=== PATIENT | female | born 1975 | race Caucasian/White ===

== ENCOUNTER 2016-09-29 10:13 | Emergency (ER) | payer OTHER ==
[~2016-09-29] VITALS: Ht 175.3 cm; Wt 112.4 kg
[~2016-09-29 10:13] MED LIST: CLONAZEPAM2 MG PO; ESKALITH300 M1 PO; HYDROCODON-ACE1 EAC7 PO; KLONOPIN2 MG PO; LITHATE5 MG PO; LITHIUM CARBON300 M1 PO; LITHIUM CARBON300 M2 PO; MOTRIN800 MG PO; PRILOSEC20 MG PO; SEROQUEL300 MG PO; SINEQUAN100 MG PO; VICODIN 5-3001 EACH PO; XANAX2 MG PO
[2016-09-29] MEDS ORDERED: ZANTAC150 MG PO (13:47)
[2016-09-29] MEDS ORDERED: PREDNISONE20 MG PO (13:47)
[2016-09-29] MEDS ORDERED: LORTAB 5-325 M1 EACH PO (13:47)
[2016-09-29] MEDS ORDERED: KEFLEX500 MG PO (13:47)
[2016-09-29 14:16] VITALS: BP 153/82
== END 2016-09-29 14:17 | disposition home or self-care (01) ==
LOC: EME → EDBD 10:13 → EME 14:17
PROC: 0H98XZZ Drainage of Buttock Skin, External Approach (ICD-10-PCS; principal; 2016-09-29)
DX: L02.31 Cutaneous abscess of buttock (principal); L50.9 Urticaria, unspecified; L29.9 Pruritus, unspecified; Z87.891 Personal history of nicotine dependence
CPT/HCPCS: 99281; 99284; J7512

== ENCOUNTER 2016-11-07 05:19 | Inpatient (IN) | payer OTHER ==
[~2016-11-07] VITALS: Ht 175.3 cm; Wt 113.4 kg
[~2016-11-07 05:19] MED LIST changes: +KEFLEX500 MG PO; +LORTAB 5-325 M1 EACH PO; +PREDNISONE20 MG PO; +ZANTAC150 MG PO
[2016-11-07 06:22] LABS: EOSINOPHIL (%) 0 % (0-5); IMMATURE GRANULOCYTE (%) 0.9 % (0.0-0.7); IMMATURE GRANULOCYTE COUNT 0.1 K/uL; INSTRUMENT ABS NEUTROPHIL CT 4.3 K/uL; LYMPHOCYTE COUNT 2.1 K/uL (1.0-2.8); MCHC 33.8 G/DL (30.0-36.0); MCV 91.8 FL (83-99); MEAN PLAT.VOLUME 9.7 uM^3 (9.5-12.4); MONOCYTE (%) 4.3 % (3-12); MONOCYTE COUNT 0.3 K/uL (0-0.8); NEUTROPHIL (%) 63.7 % (45-76); NEUTROPHIL COUNT 4.3 K/uL (1.8-6.4); PLATELET COUNT 165 K/uL (156-360); RBC DIS.WIDTH-CV 13.5 % (11.8-14.6); RBC DIS.WIDTH-SD 45.3 % (39-53); RED BLOOD COUNT 4.03 M/uL (3.80-5.20); WHITE BLOOD COUNT 6.8 K/uL (4.1-10.2)
[2016-11-07 06:35] VITALS: BP 126/75
[2016-11-07 14:15] VITALS: BP 138/83
[2016-11-07 19:24] VITALS: BP 125/75
[2016-11-07 23:17] VITALS: BP 130/65
[2016-11-08 04:33] VITALS: BP 141/70
[2016-11-08 07:13] LABS: ANION GAP 5 MEQ/L (2-14); CHLORIDE 101 MEQ/L (99-109); GFR ESTIMATE (CALCULATED) > 59 mL/min/; GLUCOSE 166 mg/dL (70-99); POTASSIUM 3.8 MEQ/L (3.7-5.4); SAMPLE HEMOLYSIS CHECK 0; SAMPLE ICTERIC CHECK 0; SAMPLE LIPEMIA CHECK 0; SODIUM 140 MEQ/L (136-147); UREA NITROGEN (BUN) 9 mg/dL (9-23)
[2016-11-08 07:19] LABS: HEMATOCRIT 31.9 % (36.0-46.0); MCH 31.2 PG (29.0-34.0); MCHC 32.9 G/DL (30.0-36.0); MCV 94.7 FL (83-99); MEAN PLAT.VOLUME 9.8 uM^3 (9.5-12.4); PLATELET COUNT 160 K/uL (156-360); RBC DIS.WIDTH-CV 13.9 % (11.8-14.6); RBC DIS.WIDTH-SD 47.4 % (39-53); RED BLOOD COUNT 3.37 M/uL (3.80-5.20); WHITE BLOOD COUNT 8.4 K/uL (4.1-10.2)
[2016-11-08 08:57] VITALS: BP 102/65
[2016-11-08 12:30] VITALS: BP 95/51
[2016-11-08 16:52] VITALS: BP 111/59
[2016-11-08 19:35] VITALS: BP 113/55
[2016-11-08 23:32] VITALS: BP 119/66
[2016-11-09 03:45] VITALS: BP 124/62
[2016-11-09 07:05] VITALS: BP 135/79
[2016-11-09] MEDS ORDERED: PERCOCET 5/31 TABLET PO (08:48)
[2016-11-09] MEDS ORDERED: MOTRIN800 MG PO (08:48)
== END 2016-11-09 10:48 | disposition home or self-care (01) | DRG 983 ==
LOC: SDC 05:19 → 2SOUTH 10:55 → ENRESERV 10:59 → 2EAST 14:10 → SDC 15:56 → 2EAST 11-09 10:48
PROVIDERS: Obstetrics & Gynecology
DX: G89.29 Other chronic pain (principal); R10.2 Pelvic and perineal pain; K21.9 Gastro-esophageal reflux disease without esophagitis; E78.5 Hyperlipidemia, unspecified; F31.9 Bipolar disorder, unspecified; F41.0 Panic disorder [episodic paroxysmal anxiety]; E66.01 Morbid (severe) obesity due to excess calories; Z53.31 Laparoscopic surgical procedure converted to open procedure; Z68.37 Body mass index [BMI] 37.0-37.9, adult; Z79.891 Long term (current) use of opiate analgesic; Z87.891 Personal history of nicotine dependence; Z88.5 Allergy status to narcotic agent; Z87.42 Personal history of other diseases of the female genital tract
CPT/HCPCS: 80048; 80061; 83001; 84450; 84460; 84702; 85025; 85027; 86850; 86900; 86901; 88305; 88307; 94799; J0330; J0690; J1100; J1170; J2250; J2270; J2405; J2710; J2765; J3010; J7120; S0020